=== PATIENT | female | born 2000 | race Caucasian/White ===

== ENCOUNTER 2022-01-28 17:46 | Emergency (ER) | payer SELFPAY ==
[2022-01-28] MEDS ORDERED: dexAMETHasone 10 MG/ML VIAL ONE (18:11)
[2022-01-28] MEDS ORDERED: hydrOXYzine HCL 25 MG TAB ONE (18:11)
--- NOTE | 2022-01-28 18:12 | EDPHYS ---
Physician Documentation [facility] Name: Mali Zhang Age: 21 yrs Sex: Female : 2000 Arrival Date: 01/28/2022 Time: 17:48 Bed 16 Private MD: ED Physician Archie Leong HPI: 01/28 17:57 This 21 yrs old Female presents to ER via Ambulatory with complaints of Allergic jmm Reaction, Sunburn. 17:57 The patient presents with rash. Onset: The symptoms/episode began/occurred gradually, 2 jmm day(s) ago. This is a 21-year-old female with no known chronic medical conditions presents emerged part with complaints of rash and sunburn to her shoulders and back. Patient states she has developed very intense itching.. Historical: - Allergies: 18:03 No Known Allergies; ss - Home Meds: 18:03 None [Active]; ss - PMHx: 18:03 None; ss - PSHx: 18:03 Tonsillectomy; ss - Immunization history:: Adult Immunizations unknown. - Social history:: Smoking status: Patient denies any tobacco usage or history of. ROS: 17:57 Constitutional: Negative for fever, chills, and weight loss, Cardiovascular: Negative jmm for chest pain, palpitations, and edema, Respiratory: Negative for shortness of breath, cough, wheezing, and pleuritic chest pain. 17:57 Skin: Positive for rash. 17:57 All other systems are negative. Exam: 17:57 Constitutional: This is a well developed, well nourished patient who is awake, alert, jmm and in no acute distress. Head/Face: atraumatic. Eyes: EOMI, no conjunctival erythema appreciated ENT: Moist Mucus Membranes Neck: Trachea midline, Supple Chest/axilla: Normal chest wall appearance and motion. Cardiovascular: Regular rate and rhythm. No edema appreciated Respiratory: Normal respirations, no respiratory distress appreciated Abdomen/GI: Non distended, soft Back: Normal ROM 17:57 Skin: Second-degree burn noted to the shoulders approximately 3 to 4% surface area on the upper back. 17:57 Neuro: Orientation: is normal, Mentation: is normal, Memory: is normal. 17:57 Psych: Behavior/mood is pleasant, cooperative. Vital Signs: 17:50 BP 158 / 85; Pulse 118; Resp 25; Temp 99.9(TE); Pulse Ox 100% on R/A; Weight 77.11 kg; ss Height 5 ft. 5 in. (165.10 cm); Pain 0/10; 17:50 Body Mass Index 28.29 (77.11 kg, 165.10 cm) MDM: 17:57 Patient medically screened. [facility] 18:10 Data reviewed: vital signs, nurses notes. Counseling: I had a detailed discussion with franklyn the patient and/or guardian regarding: the historical points, exam findings, and any diagnostic results supporting the discharge/admit diagnosis, the need for outpatient follow up, to return to the emergency department if symptoms worsen or persist or if there are any questions or concerns that arise at home. Administered Medications: 18:10 Drug: Decadron (dexamethasone) 10 mg Route: IM; Site: left gluteus; 18:18 Follow up: Response: Medication administered at discharge.; Medication administered at discharge. Pt refused to wait for shot time. 18:11 Drug: hydrOXYzine 50 mg Route: PO; 18:18 Follow up: Response: Medication administered at discharge. Disposition Summary: 01/28/22 18:11 Discharge Ordered Location: Home jm Condition: Stable jm Diagnosis - 1st Degree Burn jmm - [facility]nd [facility] - With: Private Physician - When: 2 - 3 days - Reason: Recheck today's complaints, Continuance of care, Re-evaluation by your physician Discharge Instructions: - Discharge Summary Sheet jmm - Sunburn, Adult jm Forms: - Medication Reconciliation Form [facility] - Thank You Letter [facility] - Antibiotic Education [facility] - Prescription Opioid Use [facility] Prescriptions: - Hydroxyzine HCl 25 mg Oral Tablet - take 1 tablet by ORAL route every 6 hours As needed; 30 tablet; Refills: 0, [facility] Product Selection Permitted Signatures: Archie Leong MD MD cha Mickail, Joel, PA PA jmm Smirch, Shelby, RN RN Corrections: (The following items were deleted from the chart) 18:04 18:03 Allergies: Tetanus Vaccines \T\ Toxoid; ss
--- NOTE | 2022-01-28 18:12 | ER ---
Nurse's Notes [facility] Name: Mali Zhang Age: 21 yrs Sex: Female : 2000 Arrival Date: 01/28/2022 Time: 17:48 Bed 16 Private MD: Diagnosis: 1st Degree Burn;2nd Degree Burn Presentation: 01/28 17:50 Chief complaint: Patient states: sunburn two days ago. Pt reports she took a shower ss moments ago and when she got out her sunburn started burning and became extremely itchy. Coronavirus screen: Client denies travel out of the [place] in the last 14 days. Ebola Screen: Patient denies exposure to infectious person. Patient denies travel to an Ebola-affected area in the 21 days before illness onset. Onset: The symptoms/episode began/occurred suddenly. Anaphylaxis evaluation, no signs or symptoms of anaphylaxis were noted. Initial Sepsis Screen: Does the patient meet any 2 criteria? RR > 20 per min. Does the patient have a suspected source of infection? No. Patient's initial sepsis screen is negative. Risk Assessment: Do you want to hurt yourself or someone else? Patient reports no desire to harm self or others. Onset of symptoms was January 28, 2022. 17:50 Method Of Arrival: Ambulatory ss 17:50 Acuity: [place] 3 ss Historical: - Allergies: 18:03 No Known Allergies; ss - Home Meds: 18:03 None [Active]; ss - PMHx: 18:03 None; ss - PSHx: 18:03 Tonsillectomy; ss - Immunization history:: Adult Immunizations unknown. - Social history:: Smoking status: Patient denies any tobacco usage or history of. Screenin:11 Abuse screen: Denies threats or abuse. Denies injuries from another. Nutritional ss screening: No deficits noted. Tuberculosis screening: Never had TB. Fall Risk None identified. Assessment: 17:50 General: Appears distressed, uncomfortable, Behavior is crying, restless. Pain: ss Complains of pain in top of shoulders, back Quality of pain is described as Burning Aggravated by taking a shower. Neuro: Level of Consciousness is awake, alert, obeys commands, Oriented to person, place, time, situation. Cardiovascular: Capillary refill < 3 seconds is brisk in bilateral fingers. Respiratory: Airway is patent Respiratory effort is even, Respiratory pattern is symmetrical, hyperventilation Breath sounds are clear bilaterally. Denies cough. Derm: Skin is dry, small blistering noted to top of shoulders redness noted to top of shoulder and upper back. 18:11 Reassessment: Pt states, "I really can't stay. I'll come back if I have to, but I ss really need to get home to feed my baby." Pt verbalizes understanding of risks. MARJAN Umana notified. Vital Signs: 17:50 BP 158 / 85; Pulse 118; Resp 25; Temp 99.9(TE); Pulse Ox 100% on R/A; Weight 77.11 kg; ss Height 5 ft. 5 in. (165.10 cm); Pain 0/10; 17:50 Body Mass Index 28.29 (77.11 kg, 165.10 cm) ED Course: 17:48 Patient arrived in ED. am2 17:52 Dong Varela PA is PHCP. [facility] 17:52 Archie Leong MD is Attending Physician. [facility] 17:58 Adenike Joseph, HAILEE is Primary Nurse. [facility] 18:03 Triage completed. ss 18:03 Arm band placed on right wrist. 18:11 Patient has correct armband on for positive identification. Bed in low position. Adult ss w/ patient. 18:11 No provider procedures requiring assistance completed. Patient did not have IV access ss during this emergency room visit. Administered Medications: 18:10 Drug: Decadron (dexamethasone) 10 mg Route: IM; Site: left gluteus; 18:18 Follow up: Response: Medication administered at discharge.; Medication administered at ss discharge. Pt refused to wait for shot time. 18:11 Drug: hydrOXYzine 50 mg Route: PO; 18:18 Follow up: Response: Medication administered at discharge. Medication: 18:11 VIS not applicable for this client. Outcome: 18:11 Discharge ordered by . [facility] 18:17 Discharged to home ambulatory, with family. 18:17 Condition: good 18:17 Discharge instructions given to patient, family, Instructed on discharge instructions, follow up and referral plans. medication usage, Demonstrated understanding of instructions, follow-up care, medications, Prescriptions given X 1. 18:18 Patient left the ED. Signatures: Dong Varela PA PA jmm Smirch, Shelby, RN RN Jerilyn Moreno am2 Adenike Joseph RN RN [id number] Corrections: (The following items were deleted from the chart) 18:04 18:03 Allergies: Tetanus Vaccines \\T\\ Toxoid; [facility]
[2022-01-28 18:27] VITALS: BP 158/85; TEMP 99.9; O2SAT 100
== END 2022-01-28 18:18 | disposition home or self-care (01) ==
LOC: ER 17:46
DX: L55.0 Sunburn of first degree (principal); L55.1 Sunburn of second degree
CPT/HCPCS: 96372; 99283; J1100